=== PATIENT | female | born 1985 | race African-American/Black ===

== ENCOUNTER 2021-10-13 21:34 | Emergency (ER) | payer BC ==
[2021-10-13] MEDS ORDERED: Amoxicillin/Potassium Clav 875 MG TAB ONE (22:51)
[2021-10-13] MEDS ORDERED: Ketorolac Tromethamine 30 MG/ML VIAL ONE (22:51)
[2021-10-13] MEDS ORDERED: Ketorolac Tromethamine 30 MG/ML VIAL IM SCH (23:00)
[2021-10-13] MEDS ORDERED: Amoxicillin/Potassium Clav 875 MG TAB PO SCH (23:00)
== END 2021-10-13 23:40 | disposition home or self-care (01) ==
LOC: CSHERS 21:34
DX: K04.7 Periapical abscess without sinus (principal); K02.9 Dental caries, unspecified
CPT/HCPCS: 96372; 99282; J1885